=== PATIENT | male | born 1995 | race Caucasian/White ===

== ENCOUNTER 2018-10-15 13:37 | Emergency (ER) | payer MEDICAID ==
[~2018-10-15] VITALS: Ht 180.3 cm; Wt 139.7 kg
[~2018-10-15 13:37] MED LIST: PROMETHAZINE
[2018-10-15 13:47] VITALS: BP 152/91
== END 2018-10-15 15:03 | disposition home or self-care (01) ==
LOC: ER 13:38
DX: S83.92XA Sprain of unspecified site of left knee, initial encounter (principal); X50.1XXA Overexertion from prolonged static or awkward postures, initial encounter; Y93.89 Activity, other specified; Y92.89 Other specified places as the place of occurrence of the external cause; Y99.8 Other external cause status
CPT/HCPCS: 73562